=== PATIENT | male | born 2000 | race Caucasian/White ===

== ENCOUNTER 2024-10-11 12:53 | Emergency (ER) | payer OTHER ==
[2024-10-11] MEDS ORDERED: chlordiazePOXIDE HCl 25 MG CAP ONE (14:43)
[2024-10-11] MEDS ORDERED: Morphine 4 MG/ML VIAL ONE (14:44)
[2024-10-11] MEDS ORDERED: Lorazepam 2 MG/ML VIAL ONE (14:44)
[2024-10-11] MEDS ORDERED: Ondansetron PF 4 MG/2 ML Vial ONE (14:45)
[2024-10-11] MEDS ORDERED: predniSONE 20 MG TAB ONE (14:45)
[2024-10-11 15:24] LABS: Anion Gap 14 mmol/L (10-20); BUN (Urea Nitrogen) 20 mg/dL (8.9-20.6); Calc. Creatinine Clearance 0 mL/min (70-130); Calcium 9.3 mg/dL (7.8-10.44); Carbon Dioxide 22 mmol/L (22-29); Chloride 105 mmol/L (98-107); Estimated GFR 58; Glucose 87 mg/dL (70-105); Potassium 4.3 mmol/L (3.5-5.1); Sodium 137 mmol/L (136-145)
== END 2024-10-11 15:50 | disposition home or self-care (01) ==
LOC: CSHERS 12:53
DX: M54.9 Dorsalgia, unspecified (principal); R79.89 Other specified abnormal findings of blood chemistry; F17.220 Nicotine dependence, chewing tobacco, uncomplicated; X50.1XXA Overexertion from prolonged static or awkward postures, initial encounter; Y93.89 Activity, other specified; Y92.61 Building [any] under construction as the place of occurrence of the external cause
CPT/HCPCS: 80048; 96374; 96375; J2060; J2272; J2405; J7512